=== PATIENT | male | born 1970 | race American Indian/Alaskan Native ===

== ENCOUNTER 2017-01-27 19:25 | Observation (INO) | payer MEDICAID ==
[2017-01-27 19:28] VITALS: BMI 22.3
[2017-01-27] MEDS ORDERED: Nitroglycerin 2% Ointment Foilpak UD TOP STA (19:38)
[2017-01-27] MEDS ORDERED: Morphine 2 mg/ml ISec IVP STA ×2 (19:38→21:05)
--- NOTE | 2017-01-27 19:43 | ED PDOC ---
Arrival/HPI - General Chief Complaint: Chest Pain Time Seen by Provider: 01/27/17 19:26 Historian: Patient - History of Present Illness Narrative History of Present Illness (Text): 01/27/17 19:40 Pt. to ED PMHX HTN with c/o onset chest pain this evening when walking off the bus.States felt like he was going to pass out at one point.Slight SOB.Denies any back or leg pain.No hx. of any fever ,chills or cough. No leg pain.Denies any drug use. Past Medical History - Provider Review Nursing Documentation Reviewed: Yes - Infectious Disease Hx of Infectious Diseases: None - Tetanus Immunization Tetanus Immunization: Unknown - Past Medical History Past Medical History: No Previous - Cardiac Hx Pacemaker: No - Pulmonary Hx Respiratory Disorders: No - Neurological Hx Paralysis: No - HEENT Hx HEENT Disorder: Yes Hx Cataracts: Yes (both eyes not repairede yet) Other/Comment: patient states that dentist said he has an infection in upper tooth, not sure if L or R. Needs to go back again - Renal Hx Renal Disorder: No - Endocrine/Metabolic Hx Endocrine Disorders: No - Hematological/Oncological Hx Blood Transfusions: Yes Hx Blood Transfusion Reaction: No - Integumentary Hx Dermatological Disorder: No - Musculoskeletal/Rheumatological Hx Musculoskeletal Disorders: No - Gastrointestinal Hx Gastrointestinal Disorders: No - Genitourinary/Gynecological Hx Genitourinary Disorders: Yes Hx Hematuria: Yes (x 2years) - Psychiatric Hx Emotional Abuse: No Hx Physical Abuse: No Hx Substance Use: No - Past Surgical History Past Surgical History: No Previous - Anesthesia Hx Anesthesia Reactions: No Hx Malignant Hyperthermia: No - Suicidal Assessment Feels Threatened In Home Enviroment: No Family/Social History - Physician Review Nursing Documentation Reviewed: Yes Family/Social History: Hypertension, CAD/OK Smoking Status: Current Some Days Smoker Hx Alcohol Use: Yes (OCCASIONALLY) Hx Substance Use: No Allergies/Home Meds Allergies/Adverse Reactions: Allergies No Known Allergies Allergy (Verified 03/12/14 07:45) Home Medications: Home Meds Medication Instructions Recorded Confirmed Unobtainable 01/27/17 01/27/17 Review of Systems - Review of Systems Constitutional: Normal Eyes: Normal ENT: Normal Respiratory: Normal Cardiovascular: Chest Pain Gastrointestinal: Normal Genitourinary Male: Normal Musculoskeletal: Normal Skin: Normal Neurological: Normal Endocrine: Normal Hemo/Lymphatic: Normal Psychiatric: Normal Physical Exam Vital Signs Reviewed: Yes Vital Signs Temp Pulse Resp BP Pulse Ox 01/27/17 19:34 98.2 F 64 18 144/107 H 100 Temperature: Afebrile Blood Pressure: Normal Pulse: Regular Respiratory Rate: Normal Appearance: Positive for: Well-Appearing, Non-Toxic, Comfortable Pain Distress: None Mental Status: Positive for: Alert and Oriented X 3 - Systems Exam Head: Present: Atraumatic, Normocephalic Pupils: Present: PERRL Extroacular Muscles: Present: EOMI Conjunctiva: Present: Normal Mouth: Present: Moist Mucous Membranes Pharnyx: Present: Normal Neck: Present: Normal Range of Motion Respiratory/Chest: Present: Clear to Auscultation, Good Air Exchange. No: Respiratory Distress, Accessory Muscle Use Cardiovascular: Present: Regular Rate and Rhythm, Normal S1, S2. No: Murmurs Abdomen: Present: Normal Bowel Sounds. No: Tenderness, Distention, Peritoneal Signs Back: Present: Normal Inspection Upper Extremity: Present: Normal Inspection. No: Cyanosis, Edema Lower Extremity: Present: Normal Inspection, NORMAL PULSES, Normal ROM, Neurovascularly Intact. No: Edema, CALF TENDERNESS, Kilo's Sign, Tenderness, Swelling Neurological: Present: GCS=15, CN II-XII Intact, Speech Normal, Motor Func Grossly Intact, Normal Sensory Function Skin: Present: Warm, Dry, Normal Color. No: Rashes Psychiatric: Present: Alert, Oriented x 3, Normal Insight, Normal Concentration Medical Decision Making ED Course and Treatment: 01/27/17 21:21 Case discussed with medical laboratory specialist motion picture photographer, who is aware and agrees with plan. 01/27/17 21:[address] Sal, who is aware and agrees with plan. Accepts pt in to hospitalist service. Pt will go to Telemetry observation for chest pain. - Lab Interpretations Lab Results: 01/27/17 19:50 01/27/17 19:50 Lab Results 01/27/17 19:50: WBC 5.0, RBC 4.85, Hgb 13.5 L, Hct 39.5 L, MCV 81.4, MCH 27.8, MCHC 34.2, RDW 14.0, Plt Count 228, MPV 9.5 01/27/17 19:50: Sodium 138, Potassium 3.8, Chloride 101, Carbon Dioxide 30, Anion Gap 11, BUN 10, Creatinine 0.9, Est GFR ( Amer) > 60, Est GFR (Non- Af Amer) > 60, Random Glucose 72, Calcium 9.7, Total Bilirubin 0.8, AST 54, ALT 56, Alkaline Phosphatase 49, Lactate Dehydrogenase 462, Total Creatine Kinase 191, Troponin I < 0.01, Total Protein 8.0, Albumin 4.2, Globulin 3.7, Albumin/ Globulin Ratio 1.1 01/27/17 19:50: PT 11.3, INR 1.05, APTT 28.9 I have reviewed the lab results: Yes - RAD Interpretation Narrative RAD Interpretations (Text): 01/27/17 21:06 CXR-no acute process Radiology Orders: 01/27/17 19:39 CHEST PORTABLE [RAD] Stat Pattern Filer: ED Physician - EKG Interpretation EKG Interpretation (Text): 01/27/17 19:43 NSR@ 65,NSSTT changes Interpreted by ED Physician: Yes Type: 12 lead EKG - Medication Orders Current Medication Orders: Discontinued Medications Aspirin (Aspirin) 325 mg PO ONCE STA Stop: 01/27/17 19:39 Last Admin: 01/27/17 20:39 Dose: 325 mg Morphine Sulfate (Morphine) 2 mg IVP STAT STA Stop: 01/27/17 19:39 Last Admin: 01/27/17 20:39 Dose: 2 mg Morphine Sulfate (Morphine) 2 mg IVP STAT STA Stop: 01/27/17 21:06 Last Admin: 01/27/17 21:20 Dose: 2 mg Nitroglycerin (Nitro-Bid 2% Oint) 1 ea TOP ONCE STA Stop: 01/27/17 19:39 Last Admin: 01/27/17 20:39 Dose: 1 ea Disposition/Present on Arrival - Present on Arrival Any Indicators Present on Arrival: No History of DVT/PE: No History of Uncontrolled Diabetes: No Urinary Catheter: No History of Decub. Ulcer: No History Surgical Site Infection Following: None - Disposition Have Diagnosis and Disposition been Completed?: Yes Diagnosis: Chest pain Disposition: HOSPITALIZED Disposition Time: 21:28 Patient Problems: Current Active Problems Problem Status Onset Chest pain Acute Condition: STABLE Discharge Instructions (ExitCare): Chest Pain (ED) Referrals: PCP,NO [Primary Care Provider] - Follow up with primary
[2017-01-27 20:14] LABS: HEMATOCRIT 39.5 % (42.0-52.0); MEAN CELL VOLUME 81.4 fL (80.0-105.0); MEAN CORPUSCULAR HEMOGLOBIN 27.8 pg (25.0-35.0); MEAN CORPUSCULAR HGB CONC 34.2 g/dl (31.0-37.0); MEAN PLATELET VOLUME 9.5 fl (7.0-11.0)
[2017-01-27 20:24] LABS: INR 1.05 (0.93-1.08); PARTIAL THROMBOPLASTIN TIME 28.9 Seconds (23.7-30.8)
[2017-01-27 20:26] LABS: ALB/GLOB RATIO 1.1 (1.1-1.8); ALKALINE PHOSPHATASE 49 U/L (38-133); ALT/SGPT 56 U/L (7-56); AST/SGOT 54 U/L (15-59); BILIRUBIN,TOTAL 0.8 mg/dL (0.2-1.3); BLOOD UREA NITROGEN 10 mg/dL (7-21); CALCIUM 9.7 mg/dL (8.4-10.5); CARBON DIOXIDE 30 mmol/L (21-33); CHLORIDE 101 mmol/L (98-107); GFR AFRICAN-AMERICAN > 60; GLUCOSE,RANDOM 72 mg/dL (70-110); POTASSIUM 3.8 mmol/L (3.6-5.0); SODIUM 138 mmol/L (132-148)
[2017-01-27 20:35] LABS: TROPONIN I < 0.01 ng/mL
[2017-01-27] MEDS ORDERED: Pneumococcal 23-Valent Vaccine IM ONE (22:30)
[2017-01-27 22:54] VITALS: O2SAT 99
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
[2017-01-27] MEDS ORDERED: oxyCODONE 5 mg Immediate Release Tab PO PRN (23:29)
[2017-01-28 01:47] VITALS: RESP 20; TEMP 98.5
[2017-01-28] MEDS ORDERED: Morphine 2 mg/ml ISec IVP STA (02:28)
[2017-01-28 05:13] LABS: ADD MANUAL DIFF? NO
[2017-01-28 05:22] LABS: BASO # 0.02 K/mm3 (0.0-2.0); BASO % 0.5 % (0.0-3.0); EOS # 0.1 (0.0-0.7); EOS % 2.8 % (1.5-5.0); GRAN # 2.32 (1.4-6.5); GRAN % 58.2 % (50.0-68.0); HEMATOCRIT 37.9 % (42.0-52.0); LYMPH # 1.3 (1.2-3.4); LYMPH % 31.7 % (22.0-35.0); MEAN CELL VOLUME 81.7 fL (80.0-105.0); MEAN CORPUSCULAR HEMOGLOBIN 27.6 pg (25.0-35.0); MEAN CORPUSCULAR HGB CONC 33.8 g/dl (31.0-37.0); MEAN PLATELET VOLUME 9.6 fl (7.0-11.0); MONO # 0.3 (0.1-0.6); MONO % 6.8 % (1.0-6.0); PLATELET COUNT 218 10^3/uL (120.0-450.0); RED CELL DISTRIBUTION WIDTH 14.1 % (11.5-14.5)
[2017-01-28 05:26] LABS: ALB/GLOB RATIO 1.1 (1.1-1.8); ALKALINE PHOSPHATASE 44 U/L (38-133); ALT/SGPT 54 U/L (7-56); AST/SGOT 48 U/L (15-59); BILIRUBIN,TOTAL 0.9 mg/dL (0.2-1.3); BLOOD UREA NITROGEN 13 mg/dL (7-21); CALCIUM 9.2 mg/dL (8.4-10.5); CARBON DIOXIDE 30 mmol/L (21-33); CHLORIDE 102 mmol/L (98-107); GFR AFRICAN-AMERICAN > 60; GLUCOSE,RANDOM 93 mg/dL (70-110); POTASSIUM 3.5 mmol/L (3.6-5.0); SODIUM 138 mmol/L (132-148)
[2017-01-28 05:27] LABS: CHOLESTEROL 171 mg/dL (130-200)
[2017-01-28 05:41] LABS: TROPONIN I < 0.01 ng/mL
[2017-01-28] MEDS ORDERED: Pantoprazole 40 mg EC Tab PO SCH (06:30)
[2017-01-28] MEDS ORDERED: Potassium Chloride 20 mEq ER Tab PO ONE (08:11)
[2017-01-28 09:10] VITALS: BP 127/94; PULSE 61
[2017-01-28] MEDS ORDERED: oxyCODONE 15 mg Immediate Release Tab PO SCH (10:00)
--- NOTE | 2017-01-28 10:50 | RAD ---
HISTORY: pain COMPARISON: 06/08/2014 FINDINGS: LUNGS: No active pulmonary disease. PLEURA: No significant pleural effusion identified, no pneumothorax apparent. CARDIOVASCULAR: Normal. OSSEOUS STRUCTURES: No significant abnormalities. VISUALIZED UPPER ABDOMEN: Normal. OTHER FINDINGS: None. IMPRESSION: No active disease.
--- NOTE | 2017-01-28 11:43 | CP.PCM.DIS ---
<Jh Riley - Last Filed: 02/06/17 14:39> Provider - Provider Date of Admission: 01/27/17 21:27 Attending physician: Ken Goodwin MD Primary care physician: NO PRIMARY CARE PROVIDER Consults: Cardio: Cirokind Time Spent in preparation of Discharge (in minutes): 45 Hospital Course - Lab Results Lab Results: Most Recent Lab Values WBC 4.0 10^3/ul (4.5-11.0) L 01/28/17 04:00 RBC 4.64 10^6/uL (3.5-6.1) 01/28/17 04:00 Hgb 12.8 gm/dL (14.0-18.0) L 01/28/17 04:00 Hct 37.9 % (42.0-52.0) L 01/28/17 04:00 MCV 81.7 fL (80.0-105.0) 01/28/17 04:00 MCH 27.6 pg (25.0-35.0) 01/28/17 04:00 MCHC 33.8 g/dl (31.0-37.0) 01/28/17 04:00 RDW 14.1 % (11.5-14.5) 01/28/17 04:00 Plt Count 218 10^3/uL (120.0-450.0) 01/28/17 04:00 MPV 9.6 fl (7.0-11.0) 01/28/17 04:00 Gran % 58.2 % (50.0-68.0) 01/28/17 04:00 Lymph % (Auto) 31.7 % (22.0-35.0) 01/28/17 04:00 Nance % (Auto) 6.8 % (1.0-6.0) H 01/28/17 04:00 Eos % (Auto) 2.8 % (1.5-5.0) 01/28/17 04:00 Baso % (Auto) 0.5 % (0.0-3.0) 01/28/17 04:00 Gran # 2.32 (1.4-6.5) 01/28/17 04:00 Lymph # 1.3 (1.2-3.4) 01/28/17 04:00 Nance # 0.3 (0.1-0.6) 01/28/17 04:00 Eos # 0.1 (0.0-0.7) 01/28/17 04:00 Baso # 0.02 K/mm3 (0.0-2.0) 01/28/17 04:00 PT 11.3 Seconds (9.9-11.8) 01/27/17 19:50 INR 1.05 (0.93-1.08) 01/27/17 19:50 APTT 28.9 Seconds (23.7-30.8) 01/27/17 19:50 Sodium 138 mmol/L (132-148) 01/28/17 04:00 Potassium 3.5 mmol/L (3.6-5.0) L 01/28/17 04:00 Chloride 102 mmol/L (98-107) 01/28/17 04:00 Carbon Dioxide 30 mmol/L (21-33) 01/28/17 04:00 Anion Gap 10 (10-20) 01/28/17 04:00 BUN 13 mg/dL (7-21) 01/28/17 04:00 Creatinine 0.9 mg/dL (0.5-1.4) 01/28/17 04:00 Est GFR ( Amer) > 60 01/28/17 04:00 Est GFR (Non-Af Amer) > 60 01/28/17 04:00 Random Glucose 93 mg/dL (70-110) 01/28/17 04:00 Calcium 9.2 mg/dL (8.4-10.5) 01/28/17 04:00 Total Bilirubin 0.9 mg/dL (0.2-1.3) 01/28/17 04:00 AST 48 U/L (15-59) 01/28/17 04:00 ALT 54 U/L (7-56) 01/28/17 04:00 Alkaline Phosphatase 44 U/L (38-133) 01/28/17 04:00 Lactate Dehydrogenase 335 U/L (333-699) 01/28/17 04:00 Total Creatine Kinase 162 U/L (35-230) 01/28/17 04:00 Troponin I < 0.01 ng/mL 01/28/17 04:00 Total Protein 7.0 g/dL (5.8-8.3) 01/28/17 04:00 Albumin 3.7 g/dL (3.0-4.8) 01/28/17 04:00 Globulin 3.3 gm/dL 01/28/17 04:00 Albumin/Globulin Ratio 1.1 (1.1-1.8) 01/28/17 04:00 Triglycerides 81 mg/dL (35-160) 01/28/17 04:00 Cholesterol 171 mg/dL (130-200) 01/28/17 04:00 LDL Cholesterol Direct 63 mg/dL (0-129) 01/28/17 04:00 HDL Cholesterol 87 mg/dL (29-60) H 01/28/17 04:00 Urine Opiates Screen Positive (NEGATIVE) H 01/27/17 23:20 Urine Methadone Screen Negative (NEGATIVE) 01/27/17 23:20 Ur Barbiturates Screen Negative (NEGATIVE) 01/27/17 23:20 Ur Phencyclidine Scrn Negative (NEGATIVE) 01/27/17 23:20 Ur Amphetamines Screen Negative (NEGATIVE) 01/27/17 23:20 U Benzodiazepines Scrn Negative (NEGATIVE) 01/27/17 23:20 U Oth Cocaine Metabols Positive (NEGATIVE) H 01/27/17 23:20 U Cannabinoids Screen Positive (NEGATIVE) H 01/27/17 23:20 - Hospital Course Hospital Course: Upon Admission: 46yo M with PMHx of HTN here for evaluation of chest pain. Patient has multiple cardiac risk factors with HTN, Tobacco abuse, and family Hx of heart disease. Chest pain is atypical in nature. Patient was admitted for observation. Troponins were negative x3 and ACS was ruled out. Urine Toxicology was positive for Opiates, Cocaine, and Cannabinoids. No EKG changes observed. Cardiology consult was obtained and the patient was recommended to follow up as out-patient , and recommended out-patient stress test if atypical chest pain episodes continue. Patient understands and agrees with plan. 1. Atypical Chest pain; follow up as out-patient 2. Hx of HTN 3. Substance abuse; cessation counseling Upon Discharge: Patient is cleared for discharge as per Dr. Goodwin 1. Follow up with your Primary care Physician within one week 2. Resume all of your home meds. Take new med as directed 3. Recommend immediate tobacco, cocaine and marijuana cessation. These substances have caused your current symptoms 4. Return to the ER with any concerning symptoms. New prescriptions 1. Aspirin 81mg PO Daily Discharge Exam - Head Exam Head Exam: ATRAUMATIC, NORMAL INSPECTION, NORMOCEPHALIC - Eye Exam Eye Exam: EOMI, PERRL. absent: Scleral icterus Pupil Exam: PERRL - ENT Exam ENT Exam: Mucous Membranes Moist - Respiratory Exam Respiratory Exam: Clear to PA & Lateral, NORMAL BREATHING PATTERN, UNREMARKABLE. absent: Accessory Muscle Use, Chest Wall Tenderness, Decreased Breath Sounds, Rhonchi, Wheezes, Respiratory Distress - Cardiovascular Exam Cardiovascular Exam: RRR, +S1, +S2. absent: JVD - GI/Abdominal Exam GI & Abdominal Exam: Soft, Unremarkable. absent: Distended, Rebound, Rigid, Tenderness - Extremities Exam Extremities exam: normal inspection - Back Exam Back exam: NORMAL INSPECTION - Neurological Exam Neurological exam: Alert, Oriented x3 - Psychiatric Exam Psychiatric exam: Normal Affect, Normal Mood - Skin Skin Exam: Dry, Intact, Normal Color, Warm Discharge Plan - Discharge Medications Prescriptions: Aspirin [Aspirin Chewable] 81 mg PO DAILY #30 - Follow Up Plan Condition: STABLE Disposition: HOME/ ROUTINE Instructions: Chest Pain (DC), Heart Healthy Diet (DC) Additional Instructions: Patient is cleared for discharge as per Dr. Goodwin 1. Follow up with your Primary care Physician within one week 2. Resume all of your home meds. Take new med as directed 3. Recommend immediate tobacco, cocaine and marijuana cessation. These substances have caused your current symptoms 4. Return to the ER with any concerning symptoms. New prescriptions 1. Aspirin 81mg PO Daily Referrals: Richard Lamb MD [Staff Provider] - PCP,PROSPER [Primary Care Provider] - <Ken Goodwin MD - Last Filed: 02/07/17 14:25> Provider - Provider Date of Admission: 01/27/17 21:27 Attending physician: Ken Goodwin MD Primary care physician: NO PRIMARY CARE PROVIDER Hospital Course - Lab Results Lab Results: Most Recent Lab Values WBC 4.0 10^3/ul (4.5-11.0) L 01/28/17 04:00 RBC 4.64 10^6/uL (3.5-6.1) 01/28/17 04:00 Hgb 12.8 gm/dL (14.0-18.0) L 01/28/17 04:00 Hct 37.9 % (42.0-52.0) L 01/28/17 04:00 MCV 81.7 fL (80.0-105.0) 01/28/17 04:00 MCH 27.6 pg (25.0-35.0) 01/28/17 04:00 MCHC 33.8 g/dl (31.0-37.0) 01/28/17 04:00 RDW 14.1 % (11.5-14.5) 01/28/17 04:00 Plt Count 218 10^3/uL (120.0-450.0) 01/28/17 04:00 MPV 9.6 fl (7.0-11.0) 01/28/17 04:00 Gran % 58.2 % (50.0-68.0) 01/28/17 04:00 Lymph % (Auto) 31.7 % (22.0-35.0) 01/28/17 04:00 Nance % (Auto) 6.8 % (1.0-6.0) H 01/28/17 04:00 Eos % (Auto) 2.8 % (1.5-5.0) 01/28/17 04:00 Baso % (Auto) 0.5 % (0.0-3.0) 01/28/17 04:00 Gran # 2.32 (1.4-6.5) 01/28/17 04:00 Lymph # 1.3 (1.2-3.4) 01/28/17 04:00 Nance # 0.3 (0.1-0.6) 01/28/17 04:00 Eos # 0.1 (0.0-0.7) 01/28/17 04:00 Baso # 0.02 K/mm3 (0.0-2.0) 01/28/17 04:00 PT 11.3 Seconds (9.9-11.8) 01/27/17 19:50 INR 1.05 (0.93-1.08) 01/27/17 19:50 APTT 28.9 Seconds (23.7-30.8) 01/27/17 19:50 Sodium 138 mmol/L (132-148) 01/28/17 04:00 Potassium 3.5 mmol/L (3.6-5.0) L 01/28/17 04:00 Chloride 102 mmol/L (98-107) 01/28/17 04:00 Carbon Dioxide 30 mmol/L (21-33) 01/28/17 04:00 Anion Gap 10 (10-20) 01/28/17 04:00 BUN 13 mg/dL (7-21) 01/28/17 04:00 Creatinine 0.9 mg/dL (0.5-1.4) 01/28/17 04:00 Est GFR ( Amer) > 60 01/28/17 04:00 Est GFR (Non-Af Amer) > 60 01/28/17 04:00 POC Glucose (mg/dL) 67 mg/dL (65-110) 01/27/17 19:39 Random Glucose 93 mg/dL (70-110) 01/28/17 04:00 Calcium 9.2 mg/dL (8.4-10.5) 01/28/17 04:00 Total Bilirubin 0.9 mg/dL (0.2-1.3) 01/28/17 04:00 AST 48 U/L (15-59) 01/28/17 04:00 ALT 54 U/L (7-56) 01/28/17 04:00 Alkaline Phosphatase 44 U/L (38-133) 01/28/17 04:00 Lactate Dehydrogenase 353 U/L (333-699) 01/28/17 11:40 Total Creatine Kinase 151 U/L (35-230) 01/28/17 11:40 Troponin I < 0.01 ng/mL 01/28/17 11:40 Total Protein 7.0 g/dL (5.8-8.3) 01/28/17 04:00 Albumin 3.7 g/dL (3.0-4.8) 01/28/17 04:00 Globulin 3.3 gm/dL 01/28/17 04:00 Albumin/Globulin Ratio 1.1 (1.1-1.8) 01/28/17 04:00 Triglycerides 81 mg/dL (35-160) 01/28/17 04:00 Cholesterol 171 mg/dL (130-200) 01/28/17 04:00 LDL Cholesterol Direct 63 mg/dL (0-129) 01/28/17 04:00 HDL Cholesterol 87 mg/dL (29-60) H 01/28/17 04:00 Urine Opiates Screen Positive (NEGATIVE) H 01/27/17 23:20 Urine Methadone Screen Negative (NEGATIVE) 01/27/17 23:20 Ur Barbiturates Screen Negative (NEGATIVE) 01/27/17 23:20 Ur Phencyclidine Scrn Negative (NEGATIVE) 01/27/17 23:20 Ur Amphetamines Screen Negative (NEGATIVE) 01/27/17 23:20 U Benzodiazepines Scrn Negative (NEGATIVE) 01/27/17 23:20 U Oth Cocaine Metabols Positive (NEGATIVE) H 01/27/17 23:20 U Cannabinoids Screen Positive (NEGATIVE) H 01/27/17 23:20 Attending/Attestation - Attestation I have personally seen and examined this patient.: Yes I have fully participated in the care of the patient.: Yes I have reviewed all pertinent clinical information, including history, physical exam and plan: Yes Notes (Text): 02/07/17 14:21 Patient was seen and examined with medical office technologist .Agreed with resident assessment and plan. 46 yrs old male with PMH of smoking was admitted with atypical chest pain, EKG was negative for ischemic changes, patient was evaluated by cardiology, no further work up is needed as per cardiology.Patient will be discharged home and will follow up with PCP. Management plan was discussed in detail with patient Education was provided.
[2017-01-28 12:12] LABS: TROPONIN I < 0.01 ng/mL
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
--- NOTE | 2017-01-29 01:35 | CARD ---
APPROVED REPORT EKG Measurement Heart [id number] SD 148P68 [id number] <Conclusion> Normal sinus rhythm with sinus arrhythmia Possible Left atrial enlargement Borderline ECG
--- NOTE | 2017-01-29 01:39 | CARD ---
APPROVED REPORT EKG Measurement Heart [id number] NC 140P61 [id number] <Conclusion> Normal sinus rhythm Possible Left atrial enlargement Borderline ECG
== END 2017-01-28 13:46 | disposition home or self-care (01) ==
LOC: ED 19:25 → ERH 21:27 → 2RNO 23:10
PROVIDERS: ADMIT Internal Medicine; ATTEND Internal Medicine
DX: R07.89 Other chest pain (principal); I10 Essential (primary) hypertension; F17.210 Nicotine dependence, cigarettes, uncomplicated; F19.10 Other psychoactive substance abuse, uncomplicated; Z82.49 Family history of ischemic heart disease and other diseases of the circulatory system
CPT/HCPCS: 36415; 71010; 80053; 80061; 80324; 80345; 80346; 80349; 80353; 80358; 80361; 82550; 82948; 83615; 83992; 84484; 85025; 85027; 85610; 85730; 93005; 96374; 96376; 99285; G0378; J2270

== ENCOUNTER 2017-09-22 07:42 | Emergency (ER) | payer MEDICAID ==
[2017-09-22 07:42] VITALS: BMI 22.3
[2017-09-22 08:34] VITALS: TEMP 98.4
[2017-09-22] MEDS ORDERED: Sodium Chloride 0.9% 1,000 ML IV STA (09:10)
[2017-09-22] MEDS ORDERED: Morphine 2 mg/ml ISec IVP STA (09:10)
[2017-09-22 09:41] LABS: BASO # 0.01 K/mm3 (0.0-2.0); BASO % 0.1 % (0.0-3.0); GRAN # 5.97 (1.4-6.5); GRAN % 77.2 % (50.0-68.0); HEMOGLOBIN 15.7 g/dL (14.0-18.0); LYMPH % 12.5 % (22.0-35.0); MEAN CELL VOLUME 91.2 fl (80.0-105.0); MEAN CORPUSCULAR HEMOGLOBIN 30.7 pg (25.0-35.0); MEAN CORPUSCULAR HGB CONC 33.6 g/dl (31.0-37.0); MEAN PLATELET VOLUME 10.2 fl (7.0-11.0); MONO # 0.8 (0.1-0.6); MONO % 10.2 % (1.0-6.0); RBC 5.12 10^6/uL (3.5-6.1); RED CELL DISTRIBUTION WIDTH 13.4 % (11.5-14.5); WHITE BLOOD COUNT 7.7 10^3/ul (4.5-11.0)
[2017-09-22 09:53] LABS: ALB/GLOB RATIO 1.1 (1.1-1.8); ALBUMIN 4.5 g/dL (3.0-4.8); ALT/SGPT 143 U/L (7-56); AST/SGOT 152 U/L (17-59); BLOOD UREA NITROGEN 13 mg/dL (7-21); CALCIUM 9.9 mg/dL (8.4-10.5); GFR AFRICAN-AMERICAN > 60; GFR NON-AFRICAN AMERICAN > 60; LIPASE 26 U/L (23-300)
[2017-09-22 10:31] LABS: PH,URINE >=9.0 (4.7-8.0); URINE BILIRUBIN SMALL (NEGATIVE); URINE BLOOD LARGE (NEGATIVE); URINE GLUCOSE (UA) NEGATIVE (NEGATIVE); URINE LEUKOCYTE ESTERASE NEGATIVE Leu/uL (NEGATIVE); URINE NITRATE POSITIVE (NEGATIVE); URINE PROTEIN 100 mg/dL (<30 mg/dL)
[2017-09-22 10:34] LABS: URINE APPEARANCE SLIGHT-CLOUDY (CLEAR); URINE COLOR YELLOW (YELLOW)
[2017-09-22 10:35] LABS: URINE EPITHELIAL CELLS 0 - 2 /hpf (0-5); URINE RBC TNTC /hpf (0-2); URINE WBC 0 - 2 /hpf (0-6)
[2017-09-22 10:36] LABS: URINE BACTERIA FEW (NEG)
--- NOTE | 2017-09-22 11:01 | CT ---
PROCEDURE: CT Abdomen and Pelvis without intravenous contrast HISTORY: right groin pain with hematuria COMPARISON: None. TECHNIQUE: Without contrast. Contrast Dose: Radiation dose: Total exam DLP = 391 mGy-cm. This CT exam was performed using one or more of the following dose reduction techniques: Automated exposure control, adjustment of the mA and/or kV according to patient size, and/or use of iterative reconstruction technique. FINDINGS: LOWER THORAX: Unremarkable. LIVER: Unremarkable. No gross lesion or ductal dilatation. GALLBLADDER AND BILE DUCTS: Unremarkable. PANCREAS: Unremarkable. No gross lesion or ductal dilatation. SPLEEN: Unremarkable. ADRENALS: Unremarkable. No mass. KIDNEYS AND URETERS: Unremarkable. No hydronephrosis. No solid mass. VASCULATURE: Unremarkable. No aortic aneurysm. BOWEL: Unremarkable. No obstruction. No gross mural thickening. APPENDIX: Unremarkable. Normal appendix. PERITONEUM: Unremarkable. No free fluid. No free air. LYMPH NODES: Unremarkable. No enlarged lymph nodes. BLADDER: Unremarkable. REPRODUCTIVE: Unremarkable. BONES: There is hardware in the lower lumbar spine OTHER FINDINGS: None. IMPRESSION: No evidence of renal or ureteral stone.
--- NOTE | 2017-09-22 14:02 | US ---
HISTORY: scrotal swelling/pain TECHNIQUE: Realtime sonography through the scrotum with color and doppler flow. COMPARISON: None Available. FINDINGS: RIGHT TESTICLE: Measures 4.8 3 x 2.23 x 2.47 cm. Normal echotexture and flow. RIGHT EPIDIDYMIS: Epididymal head measures 1.05 x 0.77 x 0.88 cm. Grossly unremarkable appearance with normal flow. LEFT TESTICLE: Measures 4.6 3 x 2.0 x 2.46 cm. Normal echotexture and flow. LEFT EPIDIDYMIS: Epididymal head measures 0.91 x 0.57 x 0.41 cm. Grossly unremarkable appearance with normal flow. HYDROCELE: Bilateral hydroceles VARICOCELE: Right-sided small varicocele OTHER FINDINGS: None. IMPRESSION: Small right-sided varicocele. Small bilateral hydroceles. No evidence of torsion
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
[2017-09-22] MEDS ORDERED: cefTRIAXone (Rocephin) 250 mg Inj IM STA (14:34)
[2017-09-22 15:08] VITALS: BP 147/87; PULSE 82; RESP 16; O2SAT 99
== END 2017-09-22 15:22 | disposition home or self-care (01) ==
LOC: ED 07:42
DX: N39.0 Urinary tract infection, site not specified (principal); L02.214 Cutaneous abscess of groin; I10 Essential (primary) hypertension; F17.210 Nicotine dependence, cigarettes, uncomplicated
CPT/HCPCS: 74176; 80053; 81001; 83690; 85025; 87086; 93975; 96372; 96374; 96375; 99284; J0696; J1885; J2270; J7040